=== PATIENT | male | born 1980 | race Caucasian/White ===

== ENCOUNTER 2023-11-22 10:58 | Outpatient (CLI) | payer MEDICAID | END 2023-11-22 23:59 | disposition home or self-care (01) | LOC: MRI 10:58 | PROVIDERS: ATTEND Physician Assistant | DX: M51.37 Other intervertebral disc degeneration, lumbosacral region (principal); M47.816 Spondylosis without myelopathy or radiculopathy, lumbar region; M48.07 Spinal stenosis, lumbosacral region; M54.42 Lumbago with sciatica, left side | CPT/HCPCS: 72148 ==